=== PATIENT | male | born 1940 | race Caucasian/White ===

== ENCOUNTER 2017-12-21 19:36 | Emergency (ER) | payer MEDICARE, BC ==
--- NOTE | 2017-12-21 19:51 | ED ---
Syncope/Near Syncope - HPI Summary HPI Summary: 77 y/o male LITTLE s/p sudden onset 2x syncopal episodes, witnessed, hours ago today. LOC lasted around 2 minutes, per son. Pt was sitting on a stool when it occurred. Associated sx: dizziness, chronic LE weakness. Pt also fell several days ago. PMHx non hodgkins lymphoma, RA, inclusion body myositis. Information provided by the pt's family. Walking is difficult, and shuffles around. This is scribe Ed Aury documenting for attending Flo Britt MD. - History Of Current Complaint Time Seen by Provider: 12/21/17 19:42 Hx Obtained From: Patient Onset/Duration: Sudden Onset, Lasting Minutes Timing: Frequency Of Episodes - 2 Context: Witnessed Activity At Onset: At Rest Aggravating Factor(s): Nothing Alleviating Factor(s): Nothing Associated Signs And Symptoms: Dizzy, Weakness - bilateral LE - Allergies/Home Medications Allergies/Adverse Reactions: Allergies Allergy/AdvReac Type Severity Reaction Status Date / Time metoprolol [From Toprol XL] Allergy See Comment Verified 12/21/17 20:44 PMH/Surg Hx/FS Hx/Imm Hx Previously Healthy: No Endocrine/Hematology History: Denies: Hx Diabetes Cardiovascular History: Denies: Hx Hypertension - Family History Known Family History: Positive: Unknown - Social History Alcohol Use: Daily Substance Use Type: Reports: None Smoking Status (MU): Never Smoked Tobacco Review of Systems Constitutional: Negative Eyes: Negative ENT: Negative Cardiovascular: Negative Respiratory: Negative Gastrointestinal: Negative Genitourinary: Negative Musculoskeletal: Negative Skin: Negative Neurological: Other - dizziness Positive: Weakness, Syncope Psychological: Normal All Other Systems Reviewed And Are Negative: Yes Physical Exam - Summary Physical Exam Summary: Appearance: Well appearing, no pain distress Skin: warm, dry, reflects adequate perfusion Head/face: normal Eyes: EOMI, SALAZAR ENT: Dry mucous membranes. Neck: supple, non-tender Respiratory: CTA, breath sounds present Cardiovascular: RRR, pulses symmetrical Abdomen: non-tender, soft Bowel: present Musculoskeletal: normal, strength/ROM intact Neuro: normal, sensory motor intact, A&Ox3 Triage Information Reviewed: Yes Vital Signs Reviewed: Yes Diagnostics - Laboratory Result Diagrams: 12/21/17 20:55 12/21/17 20:55 Lab Statement: Any lab studies that have been ordered have been reviewed, and results considered in the medical decision making process. - Radiology CXR Xray Interpretation: No Acute Changes Radiology Interpretation Completed By: ED Physician - CT BRAIN CT CT Interpretation: No Acute Changes - No acute intracranial abnormality. Age- related atrophy and mild chronic small vessel ischemic disease. CT Interpretation Completed By: Radiologist - EKG 1 EKG Interpretation: 20:23 - SR @ 70 BPM. Course/Dx Assessment/Plan: 77 y/o male BIBA s/p sudden onset 2x syncopal episodes, witnessed, hours ago today. CXR NAD. Brain CT negative for acute pathology.Bloodwork obtained. Pt wants to go home and will be d/c home with f/u with PCP. Pts wants to take him home and will watch him. Pt instructed to return if symptoms get worse or pt experiences another syncopal episode. - Diagnoses Differential Diagnosis/HQI/PQRI: Positive: Cerebral Vascular Accident, Dysrhythmia, Hypovolemia, Myocardial Infarction, Vasovagal Episode Provider Diagnoses: Recurrent syncope Discharge - Sign-Out/Discharge Documenting (check all that apply): Patient Departure - Discharge Plan Condition: Stable Disposition: HOME Patient Education Materials: Syncope (ED), Fall Prevention for Older Adults (ED ) Referrals: Ashley Mackey MD [Primary Care Provider] - 4 Days (PLEASE F/U IN 3-5 DAYS ) Additional Instructions: RETURN FOR CHANGING/RECURRENT SYMPTOMS - Billing Disposition and Condition Condition: STABLE Disposition: Home
[2017-12-21] MEDS ORDERED: NS 0.9% 1000 ML* 1,000 ML IV ONE (19:56)
[2017-12-21 20:54] LABS: Urine Appearance Clear; Urine Blood Negative (Negative); Urine Color Straw; Urine Ketones Negative (Negative); Urine Protein Negative (Negative); Urine Specific Gravity 1.004 (1.010-1.030); Urine Urobilinogen Negative (Negative)
[2017-12-21 21:10] LABS: ABS Basophils 0.1 10^3/ul (0-0.2); ABS Eosinophils 0.3 10^3/ul (0-0.6); ABS Lymphocytes 1.7 10^3/ul (1.0-4.8); ABS Monocytes 0.4 10^3/ul (0-0.8); ABS Neutrophils 2.5 10^3/ul (1.5-7.7); ABS Nucleated RBC 0 10^3/ul; Hematocrit 39 % (42-52); Lymphocyte % 34.9 % (25-47); Mean Corpuscular HGB Conc 33 g/dl (31-36); Mean Corpuscular Hemoglobin 34 pg (27-31); Mean Corpuscular Volume 103 fL (80-94); Mean Platelet Volume 7.7 um3 (7.4-10.4); Nucleated Red Blood Cells % 0; Platelet Count 164 10^3/ul (150-450); Red Blood Count 3.82 10^6/ul (4.00-5.40); Red Cell Distribution Width 14 % (10.5-15)
[2017-12-21 21:20] LABS: EGFR Non-African American 151.2 (>60)
[2017-12-21 22:41] VITALS: BP 135/74
[2017-12-21 22:59] LABS: INR 0.9 (0.77-1.02)
--- NOTE | 2017-12-22 06:58 | RAD ---
INDICATION: Syncope. COMPARISON: Comparison is made with a prior CT of the brain from March 19, 2009. TECHNIQUE: Contiguous axial sections of the brain were obtained from the skull base to the vertex without contrast. FINDINGS: The ventricles, cisterns and sulci are enlarged consistent with age-related atrophy. There are small areas of decreased density in the subcortical and periventricular white matter suggestive of mild chronic small vessel ischemic changes. No other focal abnormality or mass effect is seen. There is no evidence for hemorrhage. No significant focal osseous abnormality is seen. The visualized portion of the paranasal sinuses and mastoid air cells appear clear. IMPRESSION: 1. NO EVIDENCE FOR ACUTE INTRACRANIAL ABNORMALITY. 2. FINDINGS CONSISTENT WITH MILD ATROPHY AND MILD CHRONIC SMALL VESSEL ISCHEMIC CHANGES.
--- NOTE | 2017-12-22 07:24 | RAD ---
Indication: Weakness. Single frontal view of the chest performed at 2016 hours was reviewed. Comparison is made with previous exam dated February 05, 2016. No mediastinal shift is noted. Heart is of normal size and configuration. Lung jensen appear clear. Lung jensen appear hyperinflated. Pacemaker leads are in place. IMPRESSION: HYPERINFLATED LUNG JENSEN. PACEMAKER LEADS IN PLACE. No active cardiopulmonary disease is present.
== END 2017-12-21 22:40 | disposition home or self-care (01) ==
LOC: ED 19:36
DX: R55 Syncope and collapse (principal); R42 Dizziness and giddiness; R53.1 Weakness
CPT/HCPCS: 36415; 70450; 71045; 80053; 81003; 82550; 83605; 83690; 83735; 84484; 85025; 85610; 85730; 93005; 96360; 99282

== ENCOUNTER 2023-09-14 10:47 | Observation (INO) ==
[2023-09-14] MEDS: Acetylcysteine INHALATION SOL 200 MG/ML NEB.SOLN 10 ML INH ONE (11:34)
[2023-09-14] MEDS: Albuterol/Ipratropium NEB.SOL (2.5/0.5 MG) 3 ML NEB.SOLN INH ONE (11:34)
[2023-09-14 11:39] LABS: ABS Lymphocytes 0.4 10^3/uL (1.0-4.8); ABS Monocytes 0.5 10^3/uL (0.0-1.1); ABS Nucleated RBC 0.02 10^3/ul; Hemoglobin 12.9 g/dL (13.2-16.3); Lymphocyte % 6.3 %; Mean Corpuscular Hemoglobin 33.7 pg (27-33); Mean Corpuscular Volume 99.1 fL (80-97); Mean Platelet Volume 6.4 fL (7.5-11.2); Nucleated Red Blood Cells % 0.2 %/100WBC (0.0-0.8); Platelet Count 221 10^3/uL (150-450); Red Blood Count 3.83 10^6/uL (4.06-5.63); Red Cell Distribution Width 17.1 % (12-17); White Blood Count 6.9 10^3/uL (3.6-10.2)
[2023-09-14] MEDS: Lactated Ringers 1000 ml BAG 1,000 ML IV ONE (11:50)
[2023-09-14 12:13] LABS: High Sens Troponin Baseline 205 pg/mL (<20)
[2023-09-14 12:37] LABS: ALT 26 U/L (7-52); Albumin 3.7 g/dL (3.2-5.2); Albumin/Globulin Ratio 0.9 (1-3); Alkaline Phosphatase 81 U/L (35-149); Blood Urea Nitrogen 17 mg/dL (6-24); C Reactive Protein 138.56 mg/L (<8.01); CO2 Carbon Dioxide 21 mmol/L (22-32); Chloride 96 mmol/L (101-111); Creatinine, Serum 0.59 mg/dL (0.67-1.17); Glucose 78 mg/dL (70-100); Sodium 130 mmol/L (135-145); Total Bilirubin 0.9 mg/dL (0.2-1.0); Total Protein 7.7 g/dL (6.4-8.9); eGFR CKD-EPI 97.5 (>60)
[2023-09-14 12:45] LABS: INR 1.17 (0.83-1.13)
[2023-09-14 12:48] LABS: AST 39 U/L (13-39); Anion Gap 13 mmol/L (2-16); Magnesium 1.9 mg/dL (1.9-2.7); Phosphorus 3.1 mg/dL (2.5-5.0); Potassium 3.9 mmol/L (3.5-5.0)
[2023-09-14 13:09] LABS: High Sensitivity Troponin 1 Hr 214 pg/mL (<20)
[2023-09-14] MEDS: Iohexol 350 (CONTRAST) 500 ML MDV IV ONE (13:49)
[2023-09-14 14:06] LABS: Urine Appearance Clear; Urine Bilirubin Negative (Negative); Urine Blood Trace (Negative); Urine Color Yellow; Urine Glucose Negative (Negative); Urine Ketones 2+ (Negative); Urine Nitrite Negative (Negative); Urine Protein 1+ (>=30 mg/dL) (Negative); Urine Specific Gravity 1.021 (1.002-1.030); Urine Urobilinogen 1+ (Negative)
[2023-09-14 14:12] LABS: Urine Bacteria Absent /HPF (Absent); Urine Red Blood Cell 2+(6-10/hpf) /HPF (0-Trace); Urine White Blood Cell Trace(0-5/hpf) /HPF (0-Trace)
[2023-09-14] MEDS: Piperacillin/Tazobac 3.375 BAG 3.375 GM/100 ML BAG IV ONE (15:39)
[2023-09-14] MEDS: DOXYcycline 100 MG in NS 0.9% 250 ml 250 ML IVPB ONE (17:32)
[2023-09-14] MEDS ORDERED: Albuterol/Ipratropium NEB.SOL (2.5/0.5 MG) 3 ML NEB.SOLN INH PRN (18:42)
[2023-09-14] MEDS ORDERED: cefTRIAXone 1 gm/50 mL D5W 1 GM/50 ML BAG IV SCH (18:45)
[2023-09-14 20:37] LABS: Ferritin 97.2 ng/mL (24-336); Folate > 20.00 ng/mL (5.90-24.80); Vitamin B12 263 pg/mL (180-914)
[2023-09-14] MEDS ORDERED: CEFTRIAXONE 1 GM IVPB SCH (21:00)
[2023-09-14] MEDS: cefTRIAXone 1 GM Q24H (ADVAN) IVPB SCH (21:36)
[2023-09-14] MEDS: Heparin 5000 UNITS/ML 1 mL VIAL SUBCUT SCH (21:36)
[2023-09-14 23:46] LABS: .Transferrin 226 mg/dL (203-362); Total Iron Binding Capacity 316 mcg/dL (250-450)
[2023-09-15] MEDS: DOXYcycline 100 MG in NS 0.9% 250 ml 250 ML IVPB SCH (05:51)
[2023-09-15 06:10] LABS: Anion Gap 12 mmol/L (2-16); Blood Urea Nitrogen 20 mg/dL (6-24); CO2 Carbon Dioxide 22 mmol/L (22-32); Calcium 8.4 mg/dL (8.6-10.3); Chloride 99 mmol/L (101-111); Creatinine, Serum 0.58 mg/dL (0.67-1.17); Glucose 84 mg/dL (70-100); Sodium 133 mmol/L (135-145)
[2023-09-15 06:22] LABS: Potassium Redraw 3.9 mmol/L (3.5-5.0)
[2023-09-15 06:40] LABS: ABS Lymphocytes 0.5 10^3/uL (1.0-4.8); ABS Monocytes 0.9 10^3/uL (0.0-1.1); ABS Neutrophils 11.4 10^3/uL (1.5-7.6); ABS Nucleated RBC 0.02 10^3/ul; Hematocrit 35.2 % (38-53); Hemoglobin 11.8 g/dL (13.2-16.3); Lymphocyte % 3.7 %; Mean Corpuscular Hemoglobin 33.4 pg (27-33); Mean Corpuscular Hgb Conc 33.6 g/dL (31-36); Mean Corpuscular Volume 99.5 fL (80-97); Nucleated Red Blood Cells % 0.2 %/100WBC (0.0-0.8); Red Blood Count 3.53 10^6/uL (4.06-5.63); Red Cell Distribution Width 17.2 % (12-17); White Blood Count 12.8 10^3/uL (3.6-10.2)
[2023-09-15] MEDS ORDERED: Cholecalciferol (VIT D3) 1,000 unit TAB PO SCH (09:00)
[2023-09-15] MEDS ORDERED: Magnesium Hydroxide LIQ 30 ML UDC PO SCH (09:00)
[2023-09-15] MEDS ORDERED: Polyethylene Glycol 3350 17 GM PACKET PO SCH (09:00)
[2023-09-15] MEDS: Acetylcysteine INHALATION SOL 200 MG/ML NEB.SOLN 10 ML INH SCH (09:53)
[2023-09-15] MEDS ORDERED: Acetylcysteine INHALATION SOL 200 MG/ML NEB.SOLN 10 ML INH SCH (10:00)
[2023-09-15 11:31] VITALS: BP 105/65
== END 2023-09-15 11:31 | disposition home or self-care (01) ==
LOC: ED 10:47 → EDHOLD 10:47 → SUATTDRO 15:21 → EDHOLD 09-15 11:30
PROVIDERS: ADMIT Internal Medicine; ATTEND Internal Medicine